=== PATIENT | female | born 1940 | race Caucasian/White ===

== ENCOUNTER 2018-07-29 10:31 | Emergency (ER) | payer MEDICARE, OTHER ==
[~2018-07-29] VITALS: Ht 152.4 cm; Wt 52.3 kg
[2018-07-29] MEDS ORDERED: LOMOTIL TAB 01 UDTAB PO (12:00)
[2018-07-29] MEDS ORDERED: ESCITALOPRAM10 MG PO (12:01)
[2018-07-29] MEDS ORDERED: B COMPLEX #11 TAB PO (12:01)
[2018-07-29] MEDS ORDERED: FOSAMAX 70MG TA70 MG PO (12:01)
[2018-07-29] MEDS ORDERED: B COMPLEX #11 TA1 (12:01)
[2018-07-29] MEDS ORDERED: ARICEPT5 M1 PO (12:01)
[2018-07-29] MEDS ORDERED: ATORVASTATIN CA40 MG PO (12:02)
[2018-07-29] MEDS ORDERED: WELCHOL 625MG625 MG PO (12:02)
[2018-07-29] MEDS ORDERED: LISINOPRIL10 MG PO (12:02)
[2018-07-29] MEDS ORDERED: GABAPENTIN100 MG PO (12:03)
[2018-07-29] MEDS ORDERED: LEADER MELATONIN5 MG PO (12:03)
[2018-07-29 14:15] LABS: URINE APPEARANCE CLOUDY; URINE BILIRUBIN NEGATIVE (NEGATIVE); URINE BLOOD 50 ery/uL (NEGATIVE); URINE COLOR YELLOW; URINE GLUCOSE NEGATIVE (NEGATIVE); URINE KETONE 1+ (NEGATIVE); URINE LEUKOCYTE ESTERASE 2+ (NEGATIVE); URINE NITRATE NEGATIVE (NEGATIVE); URINE PROTEIN(semi-quant) 2+ mg/dL (NEGATIVE); URINE UROBILINOGEN NORMAL (NORMAL); URINE WBC >50 /hpf (0-3)
[2018-07-29 14:16] LABS: URINE MUCUS PRESENT (NOT PRESENT)
[2018-07-29] MEDS ORDERED: CEFDINIR300 MG PO ×2 (14:25→14:38)
[2018-07-29 14:50] VITALS: BP 139/71
== END 2018-07-29 14:50 | disposition home or self-care (01) ==
LOC: ED 10:31
PROVIDERS: Family Medicine
DX: S16.1XXA Strain of muscle, fascia and tendon at neck level, initial encounter (principal); S80.01XA Contusion of right knee, initial encounter; S90.02XA Contusion of left ankle, initial encounter; N39.0 Urinary tract infection, site not specified; W18.30XA Fall on same level, unspecified, initial encounter; Y92.009 Unspecified place in unspecified non-institutional (private) residence as the place of occurrence of the external cause; I10 Essential (primary) hypertension; Z86.73 Personal history of transient ischemic attack (TIA), and cerebral infarction without residual deficits; Z79.899 Other long term (current) drug therapy